=== PATIENT | female | born 1980 ===

== ENCOUNTER 2017-08-29 08:27 | Emergency (ER) | payer MEDICAID ==
[2017-08-29 08:27] VITALS: BMI 30.2
[2017-08-29 08:43] VITALS: RESP 18; TEMP 98.3
--- NOTE | 2017-08-29 09:14 | C.PDOC ---
History Of Present Illness 36 yo female , miscarriage 1, come in for re-evaluation of vaginal bleeding after [place] [facility] [place] and diagnosed with threatened miscarriage. Pt reports, last beta HCG 1400 2 days ago, US performed and IUP was unvisualized. Pt admits, still have vaginal bleeding " heavy", denies cramping or passing clots. Pt denies previous hx of ectopic , denies fever, chills, headache, dizziness, weakness, CP, SOB, abd. pain, N/V/D, back pain, UTI sx. Ambulate to Ed for evaluation, not in any apparent distress. Time Seen by Provider: 08/29/17 08:46 Chief Complaint (Nursing): Medical Clearance History Per: Patient Past Medical History Reviewed: Historical Data, Nursing Documentation, Vital Signs Vital Signs: Last Vital Signs Temp 98.3 F 08/29/17 08:38 Pulse 93 H 08/29/17 08:38 Resp 18 08/29/17 08:38 BP 122/81 08/29/17 08:38 Pulse Ox 99 08/29/17 10:59 - Medical History PMH: Hypothyroidism Denies: Depression - [facility] Procedures VENOUS PUNCTURE NEC (04/21/14) Family History: States: No Known Family Hx - Social History Hx Tobacco Use: No Hx Alcohol Use: No Hx Substance Use: No - Immunization History Hx Tetanus Toxoid Vaccination: No Hx Influenza Vaccination: No Hx Pneumococcal Vaccination: No Review Of Systems Except As Marked, All Systems Reviewed And Found Negative. Constitutional: Negative for: Fever, Chills ENT: Negative for: Throat Pain Cardiovascular: Negative for: Chest Pain, Palpitations Respiratory: Negative for: Cough, Shortness of Breath Gastrointestinal: Negative for: Nausea, Vomiting, Abdominal Pain, Diarrhea Genitourinary: Positive for: Vaginal Bleeding Musculoskeletal: Negative for: Neck Pain, Back Pain Skin: Negative for: Rash Neurological: Negative for: Weakness, Numbness, Altered Mental Status, Headache , Dizziness Physical Exam - Physical Exam Appears: Well, Non-toxic, No Acute Distress Skin: Normal Color, Warm, Dry, No Rash Head: Normacephalic Eye(s): bilateral: PERRL Nose: No Flaring, No Discharge Oral Mucosa: Moist, No Drooling Tongue: Normal Appearing Lips: Normal Appearing Throat: No Drooling Neck: Trachea Midline, Supple Cardiovascular: Rhythm Regular, No JVD Respiratory: No Decreased Breath Sounds, No Accessory Muscle Use, No Stridor, No Wheezing Gastrointestinal/Abdominal: Soft, No Tenderness, No Distention, No Guarding Back: No CVA Tenderness Extremity: Normal ROM, No Pedal Edema Neurological/Psych: Oriented x3, Normal Speech ED Course And Treatment - Laboratory Results Result Diagrams: 08/29/17 09:47 O2 Sat by Pulse Oximetry: 99 Pulse Ox Interpretation: Normal - CT Scan/US TRANSVAGINAL US Other Rad Studies (CT/US): Radiology Report Reviewed Progress Note: On re-eval, pt is afebrile, hemodynamicaloy stable. Non-toxic. Tolerate Po well in ED. PulseOx 98% RA. ENT: no acute findings. neck: Supple. Lungs: CTA B/L, BS equal B/L. Abdomen: benign, (-) guarding, (-) rebound. back: (-) CVA Tenderness. Beta quant review- 566. As per pt, 2 days ago beta quant was 1400. US results review (-). Pt reports, blood type O positive. Pt has clinical findings c/w threatened miscarriage r/o sponatenous . Pt advised on course of ds. ref. to f/u with [facility] in 1-2 days for re- eavl. return if any new changes. Disposition Counseled Patient/Family Regarding: Studies Performed, Diagnosis, Need For Followup - Disposition Referrals: Maximo Ling DO [[facility]] Disposition: HOME/ ROUTINE Disposition Time: 10:53 Condition: STABLE Additional Instructions: FOLLOW UP WITH [facility] IN 1-2 DAYS FOR RE-EVALUATION. RETURN TO ED IF ANY WORSENING OR NEW CHANGES. Instructions: Threatened Miscarriage (ED) Forms: [employer] (Beninese) - Clinical Impression Clinical Impression: Threatened
[2017-08-29 09:53] LABS: BASO % 0.4 % (0.0-2.0); EOS # 0.1 K/uL (0.0-0.7); EOS % 1.5 % (0.0-4.0); HEMATOCRIT 38.5 % (34.0-47.0); LYMPH # 1.5 K/uL (1.0-4.3); LYMPH % 18.9 % (20.0-40.0); MEAN CELL VOLUME 80.1 fL (81.0-99.0); MEAN CORPUSCULAR HEMOGLOBIN 25.7 pg (27.0-31.0); MEAN CORPUSCULAR HGB CONC 32.1 g/dL (33.0-37.0); MEAN PLATELET VOLUME 9.6 fL (7.2-11.7); MONO # 0.5 K/uL (0.0-0.8); MONO % 6.5 % (0.0-10.0); RED CELL DISTRIBUTION WIDTH 14.2 % (11.5-14.5); WHITE BLOOD COUNT 7.8 K/uL (4.8-10.8)
[2017-08-29 10:04] LABS: RBC URINE 77 /hpf (0-3); URINE BILIRUBIN NEGATIVE (NEGATIVE); URINE BLOOD 2+ (NEGATIVE); URINE COLOR Yellow (YELLOW); URINE GLUCOSE (UA) NORMAL (Normal); URINE KETONE NEGATIVE (NEGATIVE); URINE LEUKOCYTE ESTERASE NEG Leu/uL (Negative); URINE PROTEIN NEGATIVE (NEGATIVE); URINE UROBILINOGEN NORMAL mg/dL (0.2-1.0); WBC URINE 1 /hpf (0-5)
--- NOTE | 2017-08-29 10:59 | US ---
Pelvic ultrasound History: Vaginal bleeding. Comparison: None available. Technique: Real-time sonography was performed through the pelvis utilizing transabdominal and transvaginal techniques. Findings: Beta HCG positive measuring approximately 530. Uterus: 8.6 x 6.4 x 5.3 centimeters. Heterogeneous echotexture. Retroverted. No discrete intrauterine identified. Endometrium measures 1.1 centimeters, mildly prominent. Small amount of free fluid within the pelvic cul-de-sac. Right ovary: 3.2 x 2.7 x 3.1 centimeters. Normal flow. Left ovary: 3.0 x 2.0 x 2.3 centimeters. Normal flow. Impression: Positive test without evidence of discrete intrauterine . These findings may represent a missed versus early versus ectopic . Clinical correlation. Continued interval followup may be helpful. Free fluid within the pelvic cul-de-sac. Mild prominence of the endometrium measuring up to 1.1 centimeters.
[2017-08-29 11:17] VITALS: BP 120/80; PULSE 92; O2SAT 98
== END 2017-08-29 11:17 | disposition home or self-care (01) ==
LOC: C.ER 08:27
DX: O20.0 Threatened abortion (principal); Z3A.00 Weeks of gestation of pregnancy not specified

== ENCOUNTER 2017-09-11 17:50 | Emergency (ER) | payer MEDICAID ==
[2017-09-11 18:38] VITALS: BMI 32.1
[2017-09-11 18:40] VITALS: O2SAT 100
--- NOTE | 2017-09-11 18:44 | C.PDOC ---
History Of Present Illness Ankita Allred is a 36 year old female who presents complaining of muscle spasms from the cervical region to the mid thoracic region for about 1 week. States feeling stressed as she had a miscarriage 11 days ago and a family member undergoing surgery recently. She has not taken any medications at home. Denies any associated fall or trauma. No similar symptoms in the past. No headache, nausea, or vomiting. PMD: Maximo Garcia DO Time Seen by Provider: 09/11/17 18:43 Chief Complaint (Nursing): Back Pain History Per: Patient History/Exam Limitations: no limitations Onset/Duration Of Symptoms: Days (x 1 week) Current Symptoms Are (Timing): Still Present Past Medical History Reviewed: Historical Data, Nursing Documentation, Vital Signs Vital Signs: Last Vital Signs Temp 98.5 F 09/11/17 19:25 Pulse 74 09/11/17 19:25 Resp 18 09/11/17 19:25 BP 128/72 09/11/17 19:25 Pulse Ox 100 09/11/17 20:59 - Medical History PMH: Hypothyroidism Denies: Depression Surgical History: No Surg Hx - [facility] Procedures VENOUS PUNCTURE NEC (04/21/14) Family History: States: No Known Family Hx - Social History Hx Tobacco Use: No Hx Alcohol Use: Yes Hx Substance Use: No - Immunization History Hx Tetanus Toxoid Vaccination: No Hx Influenza Vaccination: No Hx Pneumococcal Vaccination: No Review Of Systems Except As Marked, All Systems Reviewed And Found Negative. Gastrointestinal: Negative for: Nausea, Vomiting Musculoskeletal: Positive for: Back Pain (spasm) Neurological: Negative for: Headache Physical Exam - Physical Exam Appears: Non-toxic, No Acute Distress Skin: Normal Color, Warm, Dry Head: Atraumatic, Normacephalic Eye(s): bilateral: Normal Inspection, PERRL, EOMI Nose: Normal Neck: Normal ROM, No Midline Cervical Tenderness, Paracervical Tenderness, No Step Off Deformity Back: No Vertebral Tenderness, Muscle Spasm (Paracervical and parathoracic) Extremity: Normal ROM, No Deformity Neurological/Psych: Oriented x3, Normal Speech ED Course And Treatment O2 Sat by Pulse Oximetry: 100 (RA) Pulse Ox Interpretation: Normal Reassessment Condition: Improved Medical Decision Making Medical Decision Making: Pt had a miscarriage 11 days ago. Time: 19:09 Initial Impression: 36 year old female with upper back strain Initial Plan: * Ibuprofen 600 mg PO Patient is medically stable. Will d/c with cyclobenzaprine and ibuprofen. Patient will follow up with PMD for further evaluation. Disposition Counseled Patient/Family Regarding: Studies Performed, Diagnosis, Need For Followup, Rx Given - Disposition Referrals: Maximo Garcia DO [[facility]] - Disposition: HOME/ ROUTINE Disposition Time: 19:11 Condition: STABLE Additional Instructions: FOLLOW UP WITH DR. GARCIA ON WEDNESDAY FOR RE-EVALUATION. IF SYMPTOMS GET WORSE OR ANY NEW CONCERNING SYMPTOMS DEVELOP RETURN TO ED. 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 - Scribe Statement The provider has reviewed the documentation as recorded by the Scribmoi Zendejas All medical record entries made by the Shelby were at my direction and personally dictated by me. I have reviewed the chart and agree that the record accurately reflects my personal performance of the history, physical exam, medical decision making, and the department course for this patient. I have also personally directed, reviewed, and agree with the discharge instructions and disposition.
[2017-09-11 19:26] VITALS: BP 128/72; PULSE 74; RESP 18; TEMP 98.5
== END 2017-09-11 19:26 | disposition home or self-care (01) ==
LOC: C.ER 17:50
DX: S29.012A Strain of muscle and tendon of back wall of thorax, initial encounter (principal); X58.XXXA Exposure to other specified factors, initial encounter

== ENCOUNTER 2017-09-13 02:57 | Emergency (ER) | payer MEDICAID ==
[2017-09-13 02:57] VITALS: BMI 32.1
--- NOTE | 2017-09-13 03:14 | C.PDOC ---
History Of Present Illness 36 year old female presents to the ER with a complaint of sudden onset of feeling shaky, nausea, and vomiting, associated with nonspecific abdominal discomfort0 Patient has a Hx of a threatened . Denies vaginal bleeding, fever, chills, or diarrhea. Chief Complaint (Nursing): GI Problem History Per: Patient History/Exam Limitations: no limitations Onset/Duration Of Symptoms: Hrs, Sudden Onset Current Symptoms Are (Timing): Still Present Location Of Pain/Discomfort: Diffuse Quality Of Discomfort: Unable To Describe Associated Symptoms: Nausea, Vomiting. denies: Fever, Chills Exacerbating Factors: None Alleviating Factors: None Recent travel outside of the [place]: No Abnormal Vaginal Bleeding: No Past Medical History Reviewed: Historical Data, Nursing Documentation, Vital Signs Vital Signs: Last Vital Signs Temp 98.2 F 09/13/17 03:06 Pulse 88 09/13/17 03:06 Resp 18 09/13/17 03:06 BP 114/77 09/13/17 03:06 Pulse Ox 98 09/13/17 05:26 - Medical History PMH: Hypothyroidism Surgical History: No Surg Hx - [facility] Procedures VENOUS PUNCTURE NEC (04/21/14) Family History: States: Unknown Family Hx - Social History Hx Tobacco Use: No Hx Alcohol Use: Yes Hx Substance Use: No - Immunization History Hx Tetanus Toxoid Vaccination: No Hx Influenza Vaccination: No Hx Pneumococcal Vaccination: No Review Of Systems Constitutional: Positive for: Other (Shakiness). Negative for: Fever, Chills Gastrointestinal: Positive for: Nausea, Vomiting, Abdominal Pain (Discomfort). Negative for: Diarrhea Genitourinary: Negative for: Vaginal Bleeding Physical Exam - Physical Exam Appears: Non-toxic, No Acute Distress Skin: Normal Color, Warm, Dry Head: Atraumatic, Normacephalic Eye(s): bilateral: Normal Inspection Oral Mucosa: Moist Neck: Normal, Supple Chest: Symmetrical, No Tenderness Cardiovascular: Rhythm Regular Respiratory: Normal Breath Sounds, No Rales, No Rhonchi, No Wheezing Gastrointestinal/Abdominal: Soft, Tenderness (Mild epigastric and mid abdominal) , No Guarding, No Rebound Extremity: Tenderness (Posterior bilateral shoulder area), No Deformity Neurological/Psych: Oriented x3, Normal Speech, Other (No focal deficits) ED Course And Treatment - Laboratory Results Result Diagrams: 09/13/17 03:30 09/13/17 03:30 ECG: Interpreted By Me, Viewed By Me ECG Rhythm: Sinus Rhythm ECG Interpretation: Normal, No Acute Changes Interpretation Of ECG: NSR, normal tracings Rate From EC O2 Sat by Pulse Oximetry: 98 (Room air) Pulse Ox Interpretation: Normal - Radiology CXR: Interpreted by Me, Viewed By Me CXR Interpretation: Yes: No Acute Disease, Other (normal chest film) Progress Note: Beta HCG on 08/26/17 was found to be 1400 and 566 on 08/29/17. Disposition Counseled Patient/Family Regarding: Studies Performed, Diagnosis - Disposition Referrals: Laith Ling, ZOE, PANEL SEWER [Primary Care Provider] - Disposition: HOME/ ROUTINE Disposition Time: 05:31 Condition: STABLE Additional Instructions: totake Flexeril and Motrin aas prescribed. Prescriptions: Nitrofurantoin Macrocrystals [Macrobid] 1 cap PO BID #14 cap Instructions: Cervical Strain (GEN), Urinary Tract Infection in Women (ED), Acute Nausea and Vomiting (ED) Forms: [employer] (Syriac) - POA Present On Arrival: None - Clinical Impression Clinical Impression: Cervical myofascial strain, Urinary tract infection, Vomiting, Hypothyroidism - Scribe Statement The provider has reviewed the documentation as recorded by the Scribe Reynold Love All medical record entries made by the Scribe were at my direction and personally dictated by me. I have reviewed the chart and agree that the record accurately reflects my personal performance of the history, physical exam, medical decision making, and the department course for this patient. I have also personally directed, reviewed, and agree with the discharge instructions and disposition.
[2017-09-13] MEDS ORDERED: Sodium Chloride 0.9% 1,000 ML IV ONE (03:17)
[2017-09-13] MEDS ORDERED: Sodium Chloride 0.9% 1,000 ML ONE ×2 (03:20→03:46)
[2017-09-13 03:45] LABS: BASO % 0.5 % (0.0-2.0); EOS # 0.2 K/uL (0.0-0.7); HEMATOCRIT 39.3 % (34.0-47.0); LYMPH # 1.6 K/uL (1.0-4.3); LYMPH % 18.2 % (20.0-40.0); MEAN CELL VOLUME 79.9 fL (81.0-99.0); MEAN CORPUSCULAR HEMOGLOBIN 25.8 pg (27.0-31.0); MEAN CORPUSCULAR HGB CONC 32.3 g/dL (33.0-37.0); MEAN PLATELET VOLUME 10.1 fL (7.2-11.7); MONO # 0.6 K/uL (0.0-0.8); MONO % 6.3 % (0.0-10.0); NRBC % 0.1 % (0.0-2.0); RED CELL DISTRIBUTION WIDTH 14.5 % (11.5-14.5); WHITE BLOOD COUNT 8.9 K/uL (4.8-10.8)
[2017-09-13 03:57] LABS: ALKALINE PHOSPHATASE 70 U/L (38-126); ALT/SGPT 31 U/L (9-52); AST/SGOT 22 U/L (14-36); BILIRUBIN,TOTAL 0.8 mg/dL (0.2-1.3); BLOOD UREA NITROGEN 14 mg/dL (7-17); CALCIUM 8.4 mg/dl (8.6-10.4); CARBON DIOXIDE 31 mmol/L (22-30); CHLORIDE 104 mmol/L (98-107); GFR AFRICAN-AMERICAN > 60; GLUCOSE,RANDOM 98 mg/dL (65-105); SODIUM 142 mmol/L (132-148); TOTAL PROTEIN 8.3 g/dL (6.3-8.3)
[2017-09-13 04:06] LABS: RBC URINE 23 /hpf (0-3); URINE BILIRUBIN NEGATIVE (NEGATIVE); URINE BLOOD 1+ (NEGATIVE); URINE COLOR Yellow (YELLOW); URINE GLUCOSE (UA) NORMAL (Normal); URINE KETONE NEGATIVE (NEGATIVE); URINE LEUKOCYTE ESTERASE TRACE Leu/uL (Negative); URINE PROTEIN NEGATIVE (NEGATIVE); WBC URINE 11 /hpf (0-5)
[2017-09-13 04:14] LABS: T4 9.71 ug/dL (5.5-11.0)
--- NOTE | 2017-09-13 05:19 | CT ---
EXAM: CT Head Without Intravenous Contrast EXAM DATE/TIME: 09/13/2017 4:13 AM CLINICAL HISTORY: 36 years old, female; Signs and symptoms; Other: Nausea; Additional info: Neck pain/ nausea TECHNIQUE: Axial computed tomography images of the head/brain without intravenous contrast. All CT scans at this facility use one or more dose reduction techniques, viz.: automated exposure control; ma/kV adjustment per patient size (including targeted exams where dose is matched to indication; i.e. head); or iterative reconstruction technique. COMPARISON: No relevant prior studies available. FINDINGS: No intracranial hemorrhage. No intracranial edema. No evidence of infarct. The sinuses and mastoid air cells are clear. IMPRESSION: No acute findings.
--- NOTE | 2017-09-13 05:26 | CT ---
EXAM: CT Cervical Spine Without Intravenous Contrast EXAM DATE/TIME: 09/13/2017 4:01 AM CLINICAL HISTORY: 36 years old, female; Pain; Cervicalgia; Additional info: Pain/tenderness TECHNIQUE: Axial computed tomography images of the cervical spine without intravenous contrast. All CT scans at this facility use one or more dose reduction techniques, viz.: automated exposure control; ma/kV adjustment per patient size (including targeted exams where dose is matched to indication; i.e. head); or iterative reconstruction technique. Coronal and sagittal reformatted images were created and reviewed. COMPARISON: No relevant prior studies available. FINDINGS: Multiple small submandibular lymph nodes are noted. There is no prevertebral soft tissue swelling. The vertebral bodies and facet joints are well aligned. The vertebral body height is well maintained. No subluxation. No fractures. IMPRESSION: No acute injury.
[2017-09-13 05:36] VITALS: BP 108/69; PULSE 65; RESP 16; TEMP 97.5; O2SAT 100
--- NOTE | 2017-09-13 09:09 | RAD ---
HISTORY: posterior chest pain COMPARISON: No prior. TECHNIQUE: Chest PA and lateral FINDINGS: LUNGS: No active pulmonary disease. PLEURA: No significant pleural effusion identified. No pneumothorax apparent. CARDIOVASCULAR: Normal. OSSEOUS STRUCTURES: No significant abnormalities. VISUALIZED UPPER ABDOMEN: Normal. OTHER FINDINGS: None. IMPRESSION: No acute cardiopulmonary disease appreciated.
--- NOTE | 2017-09-13 23:12 | CARD ---
APPROVED REPORT EKG Measurement Heart [id number] <Conclusion> Normal sinus rhythm with sinus arrhythmia Normal ECG
== END 2017-09-13 05:44 | disposition home or self-care (01) ==
LOC: C.ER 02:57 → SUPCPDRO 02:57 → C.ER 05:44
DX: S16.1XXA Strain of muscle, fascia and tendon at neck level, initial encounter (principal); X58.XXXA Exposure to other specified factors, initial encounter; N39.0 Urinary tract infection, site not specified; R11.2 Nausea with vomiting, unspecified; E03.9 Hypothyroidism, unspecified
CPT/HCPCS: 70450; 71020; 72125; 80053; 81001; 82948; 84436; 84480; 84702; 84703; 85025; 87086; 93005; 96374; 96375; 99285; J1885; J2405; J7040

== ENCOUNTER 2017-10-20 23:41 | Emergency (ER) | payer SELFPAY ==
[2017-10-20 23:41] VITALS: BMI 32.1
[2017-10-21] VITALS: RESP 20; O2SAT 100
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
[2017-10-21 02:00] VITALS: BP 120/82; PULSE 82; TEMP 98.2
--- NOTE | 2017-10-21 08:32 | RAD ---
PROCEDURE: Right Hand Radiographs. HISTORY: PAIN COMPARISON: None. FINDINGS: BONES: Normal. No fracture. JOINTS: Normal. No osteoarthritic changes. SOFT TISSUES: Normal. OTHER FINDINGS: None. IMPRESSION: Normal right hand radiographs.
== END 2017-10-21 01:58 | disposition home or self-care (01) ==
LOC: C.ER 23:41
DX: G56.31 Lesion of radial nerve, right upper limb (principal)